=== PATIENT | female | born 1955 | race Hispanic/Latino ===

== ENCOUNTER 2018-06-25 16:17 | Inpatient (IN) | payer OTHER ==
[2018-06-25] MEDS ORDERED: Vancomycin 500 mg Inj IVPB STA (17:02)
[2018-06-25] MEDS ORDERED: Oxycodone/Acetaminophen 5/325 mg Tab PO STA (17:03)
[2018-06-25] MEDS ORDERED: Piperacillin/Tazobact 3.375 gm 100 ML IVPB STA (17:03)
--- NOTE | 2018-06-25 17:32 | ED PDOC ---
Arrival/HPI - General Chief Complaint: Lower Extremity Problem/Injury Time Seen by Provider: 06/25/18 17:01 Historian: Patient - History of Present Illness Narrative History of Present Illness (Text): 06/25/18 17:01 63 year old female, with past medical history of diabetes, referred to the Emergency Department by Dr. Pretty for evaluation of left 5th toe gangrene today. Patient informs 10 days course of antibiotics with no improvement to symptoms. Patient any other associated medical complaints. Patient denies any fever, chills, nausea, vomiting, diarrhea, abdominal pain, chest pain, shortness of breath, cough, headache, dizziness, neck pain, back pain or any other complaints. PMD:Dr. Ma Time/Duration: > week Symptom Onset: Gradual Symptom Course: Unchanged Activities at Onset: Light Context: Other (Referred by Dr. Pretty) Past Medical History - Provider Review Nursing Documentation Reviewed: Yes - Infectious Disease Hx of Infectious Diseases: None - Reproductive Menopause: Yes Family/Social History - Physician Review Nursing Documentation Reviewed: Yes Family/Social History: No Known Family HX Allergies/Home Meds Allergies/Adverse Reactions: Allergies meloxicam [From Mobic] Allergy (Intermediate, Verified 06/25/18 16:20) ANAPHYLAXIS Review of Systems - Physician Review All systems were reviewed & negative as marked: Yes - Review of Systems Constitutional: absent: Fevers Respiratory: absent: SOB, Cough Cardiovascular: absent: Chest Pain, KAUR Gastrointestinal: absent: Abdominal Pain, Diarrhea, Nausea, Vomiting Musculoskeletal: Other (5th toe gangrene). absent: Back Pain, Neck Pain Neurological: absent: Headache, Dizziness Physical Exam - Physical Exam Narrative Physical Exam (Text): 06/25/18 17:01 Gen: VS reviewed, alert, well developed, well nourished, nontoxic, mild distress ENT: normal pharynx Eye: EOMI, PERRL Neck: no JVD, supple, no adenopathy CV: regular rate, regular rhythm, no rubs,no murmur, no gallops, S1, S2, pulses equal and strong Pulm: no distress, clear to auscultation, no wheeze, no rhonchi, breath sounds equal, no rales Abd: soft, nontender, no guarding, no rebound, no rigidity, normal bowel sounds Ext: no edema; dry gangrene to 5th toe noted. Mild surrounding cellulitic skin changes. Skin: good color, no rash, no cyanosis Psych: responds appropriately to questions, normal affect Neuro: oriented x3, CN2-12 intact grossly, motor intact, sensation intact Vital Signs Reviewed: Yes Vital Signs Temp Pulse Resp BP Pulse Ox 06/25/18 16:45 98.3 F 110 H 18 159/70 H 99 Temperature: Afebrile Blood Pressure: Hypertensive Pulse: Tachycardic Respiratory Rate: Normal Appearance: Positive for: Well-Appearing, Non-Toxic, Comfortable Pain Distress: Mild Mental Status: Positive for: Alert and Oriented X 3 Medical Decision Making ED Course and Treatment: 06/25/18 17:01 Impression: 63 year old female presents to the Emergency Department for evaluation of left 5th toe gangrene. Plan: -- Labs -- EKG -- Chest X-ray -- Oxcodone -- Vancomycin -- Zosyn -- Blood Culture -- X-ray of Left foot -- Reassess and disposition Prior Visits: Notes and results from previous visits were reviewed. Progress Notes: 06/25/18 18:[address] ma. patient to be admitted for nonhealing diabetic wound of the 5th toe. failed outpt po abx, patient was sent to be admitted for iv abx, no evidence of sepsis, podiatry consult, likely amputation gangrene of the foot. - RAD Interpretation Radiology Orders: 06/25/18 17:01 CHEST PORTABLE [RAD] Stat 06/25/18 17:26 FOOT LEFT 5TH DIGIT (TOE) [RAD] Stat - EKG Interpretation EKG Interpretation (Text): 06/25/18 18:53 1826: nsr at 91 bpm, nml qrs, no ectopy, no acute sttw abn Interpreted by ED Physician: Yes - Medication Orders Current Medication Orders: Piperacillin Sod/Tazobactam Sod (Zosyn 3.375 In Ns 100ml) 100 mls @ 200 mls/hr IVPB STAT STA; Protocol Stop: 06/25/18 17:32 Vancomycin HCl 1.25 gm/ Sodium (Chloride) 250 mls @ 167 mls/hr IVPB ONCE ONE Stop: 06/25/18 18:44 Discontinued Medications Oxycodone/Acetaminophen (Percocet 5/325 Mg Tab) 1 tab PO STAT STA Stop: 06/25/18 17:04 - Scribe Statement The provider has reviewed the documentation as recorded by the Scribe Scott Dominique. All medical record entries made by the Scribe were at my direction and personally dictated by me. I have reviewed the chart and agree that the record accurately reflects my personal performance of the history, physical exam, medical decision making, and the department course for this patient. I have also personally directed, reviewed, and agree with the discharge instructions and disposition. Disposition/Present on Arrival - Present on Arrival Any Indicators Present on Arrival: No History of DVT/PE: No History of Uncontrolled Diabetes: No Urinary Catheter: No History of Decub. Ulcer: No History Surgical Site Infection Following: None - Disposition Have Diagnosis and Disposition been Completed?: Yes Diagnosis: Gangrene of toe Disposition: HOSPITALIZED Disposition Time: 18:56 Patient Plan: Admission Condition: STABLE Forms: [employer] (Polish)
--- NOTE | 2018-06-25 17:52 | RAD ---
HISTORY: chest pain COMPARISON: None available. TECHNIQUE: Chest, one view. FINDINGS: Examination limited by habitus. LUNGS: Hyperinflation may be seen in setting of COPD. No focal consolidation. Please note that chest x-ray has limited sensitivity for the detection of pulmonary masses. PLEURA: No significant pleural effusion identified. No definite pneumothorax . CARDIOVASCULAR: Heart size appears within normal limits. Atherosclerotic calcification of the aortic knob. OSSEOUS STRUCTURES: Mild degenerative changes. VISUALIZED UPPER ABDOMEN: Unremarkable. OTHER FINDINGS: None. IMPRESSION: Hyperinflation may be seen in setting of COPD.
[2018-06-25 18:24] LABS: VENOUS BLOOD GAS BASE EXCESS -0.8 mmol/L (0.0-2.0); VENOUS BLOOD GAS PO2 43 mm/Hg (30-55); VENOUS BLOOD PH 7.31 (7.32-7.43)
[2018-06-25 18:36] LABS: INR 1.14; PARTIAL THROMBOPLASTIN TIME 32.4 Seconds (25.1-36.5)
[2018-06-25 18:37] LABS: BASO # 0.05 K/mm3 (0.0-2.0); BASO % 0.4 % (0.0-3.0); EOS % 0.3 % (1.5-5.0); GRAN # 8.11 (1.4-6.5); GRAN % 69.9 % (50.0-68.0); HEMOGLOBIN 15.7 g/dL (12.0-16.0); LYMPH # 2.6 (1.2-3.4); LYMPH % 22.7 % (22.0-35.0); MEAN CELL VOLUME 87.4 fl (80.0-105.0); MEAN CORPUSCULAR HEMOGLOBIN 30.4 pg (25.0-35.0); MEAN CORPUSCULAR HGB CONC 34.8 g/dl (31.0-37.0); MEAN PLATELET VOLUME 9.3 fl (7.0-11.0); MONO # 0.8 (0.1-0.6); MONO % 6.7 % (1.0-6.0); RBC 5.16 10^6/uL (3.5-6.1); RED CELL DISTRIBUTION WIDTH 13.4 % (11.5-14.5); WHITE BLOOD COUNT 11.6 10^3/ul (4.5-11.0)
[2018-06-25 18:41] LABS: ALB/GLOB RATIO 1.2 (1.1-1.8); ALBUMIN 4.2 g/dL (3.0-4.8); ALT/SGPT 29 U/L (7-56); AST/SGOT 23 U/L (14-36); BLOOD UREA NITROGEN 25 mg/dL (7-21); CALCIUM 9.5 mg/dL (8.4-10.5); GFR NON-AFRICAN AMERICAN > 60
[2018-06-25] MEDS ORDERED: Sodium Chloride 0.45% 1,000 ML IV SCH (23:00)
[2018-06-26 00:51] VITALS: BMI 27.9
[2018-06-26] MEDS: Oxycodone/Acetaminophen 5/325 mg Tab PO PRN ×2 (06:12→18:23)
[2018-06-26 06:41] LABS: BASO # 0.04 K/mm3 (0.0-2.0); BASO % 0.4 % (0.0-3.0); EOS # 0.1 (0.0-0.7); EOS % 1.2 % (1.5-5.0); GRAN # 5.77 (1.4-6.5); GRAN % 57.9 % (50.0-68.0); HEMOGLOBIN 15.7 g/dL (12.0-16.0); LYMPH # 3.3 (1.2-3.4); LYMPH % 32.9 % (22.0-35.0); MEAN CELL VOLUME 87.1 fl (80.0-105.0); MEAN CORPUSCULAR HEMOGLOBIN 30.2 pg (25.0-35.0); MEAN CORPUSCULAR HGB CONC 34.7 g/dl (31.0-37.0); MEAN PLATELET VOLUME 9.4 fl (7.0-11.0); MONO # 0.8 (0.1-0.6); MONO % 7.6 % (1.0-6.0); RBC 5.2 10^6/uL (3.5-6.1); RED CELL DISTRIBUTION WIDTH 13.4 % (11.5-14.5)
[2018-06-26 07:13] LABS: BLOOD UREA NITROGEN 18 mg/dL (7-21); CALCIUM 9.4 mg/dL (8.4-10.5); GFR NON-AFRICAN AMERICAN > 60
[2018-06-26] MEDS ORDERED: Vancomycin 1gm in NS 250ml 1 GM/250 ML BAG IVPB SCH (07:15)
--- NOTE | 2018-06-26 09:08 | HP ---
CHIEF COMPLAINT: Pain, infected left fifth toe. HISTORY OF PRESENT ILLNESS: This is a 63-year-old woman, I have never met, but has been a patient of my partner at the office for over 20 years. She presented to the office complaining of redness and erythema of the small toe on the left foot. She was treated with antibiotics. Vascular studies were done, which the patient reports were unremarkable at the local outpatient facility. She [facility] as the toe was worsening and she has failed 7 days of oral Levaquin and was recommended to come to the emergency room for admission. PAST MEDICAL HISTORY: Significant for diabetes times 20 years. Negative for hypertension, tuberculosis, asthma, seizures, coronary artery disease, AL, CAD, CVA, TIA, or cancers of any type. This is her first hospitalization to [facility]. She is s/p tonsillectomy and out patient cryosurgery for cervical CA. MEDICATIONS: Include glyburide 10 mg b.i.d., metformin 1000 mg b.i.d., aspirin 325 once a day, tramadol p.r.n. pain, and recently prescribed levofloxacin that she is taking for over 7 days with little relief. ALLERGIES: SHE REPORTS AN ALLERGY TO MELOXICAM THAT IS RECORDED IN THE MEDICAL RECORD ANAPHYLACTIC TYPE REACTION. SOCIAL HISTORY: Up until 2 days ago, the patient states that she smokes a bit less than one pack cigarettes per day. REVIEW OF SYSTEMS: Otherwise, unremarkable. PHYSICAL EXAMINATION: GENERAL: Mildly overweight 63-year-old woman, resting comfortably in a stretcher in the emergency room with some degree of pain from left fifth toe. HEENT: Head and neck unremarkable. Conjunctivae are pink. Mucous membranes are moist. NECK: Supple without masses. Thyroid was not palpable. HEART: Regular, not tachycardiac. LUNGS: Showed expiratory wheezing in all lung thao anteriorly and posteriorly with prolonged expiratory phase of COPD. ABDOMEN: Soft and nontender. EXTREMITIES: There is no edema on the right foot. Good dorsalis pedis and posterior tibial pulses are present on the right. In the left foot shows +1 edema of the foot up to the ankle. I could not feel a dorsalis pedis or posterior tibial pulse. There is erythema of the fifth toe and small area of dark dry eschar forming on medial aspect of the little toe. LABORATORY DATA: Reviewed and showed white count of 11.6, good H and H at 15 and 45. Coags were unremarkable as were her chemistries except for being slightly dry with a BUN of 25, creatinine of 0.7, and nonfasting glucose of 245. Chest x-ray and foot x-rays were done. Reports are pending. EKG was done, which was sinus rhythm; otherwise, unremarkable. Chest x-ray reports mild hyperinflation of the lungs, suspicious of COPD. IMPRESSION: 1. Peripheral artery disease especially of the left leg. 2. Cellulitis and dry gangrene of the fifth toe of the left foot. 3. Diabetes. 4. Chronic obstructive pulmonary disease with active lesion. 5. Tobacco use disorder. PLAN: The patient will be admitted to medical floor, IV antibiotics, aerosol treatments. Interventional Radiology consultation requested as well as General Surgery and Podiatry for possible amputation of the left fifth toe if revascularization is not a viable first option. Raoul Patrick MD [email or web address]
--- NOTE | 2018-06-26 10:02 | CARD ---
APPROVED REPORT Date of service: 06/25/2018 EKG Measurement Heart [id number] <Conclusion> Normal sinus rhythm Possible Left atrial enlargement Rightward axis
[2018-06-26] MEDS: Insulin Reg-MEDIUM-Coverage SC SCH ×4 (10:30→21:55)
[2018-06-26] MEDS: Albuterol-Ipratrop 3 mg / 0.5 (3 ml) UD IH SCH (11:16)
--- NOTE | 2018-06-26 11:31 | US ---
PROCEDURE: Lower extremity BOSSMAN exam HISTORY: Peripheral vascular disease with gangrene left 5th toe. Smoker. Diabetes. PHYSICIAN(S): Jimbo Yanez MD. FINDINGS: The right resting BOSSMAN is normal, 1.06. The left resting ABIs severely abnormal, 0.53 The brachial systolic pressures are symmetric. The high thigh pressures and waveforms are relatively normal. There is a 55 mm gradient across the left knee. The left calf ankle and metatarsal waveforms are severely blunted. Findings are consistent with distal left SFA, popliteal, and/or trifurcation disease. The pressures and waveforms on the right are normal at all levels. IMPRESSION: 1. Severely abnormal left BOSSMAN at rest. 2. Distal left SFA, popliteal, and/or tibial disease. 3. An MRA with gadolinium runoff has been ordered.
--- NOTE | 2018-06-26 12:44 | RAD ---
Date of service: 06/25/2018 PROCEDURE: Left Foot Radiographs. HISTORY: pain, ?osteo COMPARISON: None. FINDINGS: BONES: Normal. No fracture. JOINTS: Normal. SOFT TISSUES: Normal. OTHER FINDINGS: None. IMPRESSION: Normal left foot radiographs.
--- NOTE | 2018-06-26 16:07 | CP.PCM.CON ---
<Lesly Cho - Last Filed: 06/26/18 16:01> History of Present Illness - History of Present Illness History of Present Illness: Podiatry Consult Note for Dr. Pretty: 63 yo female patient, with PMHx of DM, seen and evaluated for L 5th digit gangrene. Patient is AAO x3 and in NAD. Patient states that Dr. Pretty sent her into the ED for further evaluation. Her left 5th digit has become more black and painful over the past two weeks; she states that she would like to do as much as she can to help save her toe at this point. She denies any other pedal complaints at this time. Denies N/V/F/SOB. Review of Systems - Review of Systems Review of Systems: As per HPI Past Patient History - Infectious Disease Hx of Infectious Diseases: None - Past Social History Smoking Status: Current Some Days Smoker - CARDIAC Hx Cardiac Disorders: No - PULMONARY Other/Comment: SMOKES 1PPD - NEUROLOGICAL Hx Neurological Disorder: No - HEENT Hx HEENT Problems: No - RENAL Hx Chronic Kidney Disease: No - ENDOCRINE/METABOLIC Hx Diabetes Mellitus Type 1: Yes - HEMATOLOGICAL/ONCOLOGICAL Hx Blood Disorders: No - MUSCULOSKELETAL/RHEUMATOLOGICAL Hx Falls: No - GASTROINTESTINAL Hx Gastrointestinal Disorders: No - GENITOURINARY/GYNECOLOGICAL Hx Genitourinary Disorders: No - PSYCHIATRIC Hx Substance Use: No - SURGICAL HISTORY Hx Surgeries: Yes Hx Cholecystectomy: Yes - ANESTHESIA Hx Anesthesia: Yes Meds Allergies/Adverse Reactions: Allergies Allergy/AdvReac Type Severity Reaction Status Date / Time meloxicam [From Mob] Allergy Intermediate ANAPHYLAXIS Verified 06/25/18 16:20 - Medications Medications: Current Medications Acetaminophen (Tylenol 325mg Tab) 650 mg PO Q6H PRN PRN Reason: Fever >100.4 F Albuterol/Ipratropium (Duoneb 3 Mg/0.5 Mg (3 Ml) Ud) 3 ml IH BID [facility] Last Admin: 06/26/18 11:16 Dose: 3 ml Aspirin (Ecotrin) 81 mg PO DAILY [facility] Last Admin: 06/26/18 10:30 Dose: 81 mg Glipizide (Glucotrol) 5 mg PO ACB [facility] Last Admin: 06/26/18 10:29 Dose: 5 mg Sodium Chloride (Sodium Chloride 0.45%) 1,000 mls @ 100 mls/hr IV .Q10H [facility] Last Admin: 06/26/18 06:13 Dose: 100 mls/hr Vancomycin HCl (Vancomycin 1gm) 1 gm in 250 mls @ 167 mls/hr IVPB Q12H [facility]; Protocol Last Admin: 06/26/18 10:30 Dose: 167 mls/hr Insulin Human Regular (Humulin R Med) 0 units SC ACHS [facility]; Protocol Last Admin: 06/26/18 10:30 Dose: Not Given Metformin HCl (Glucophage) 1,000 mg PO BID [facility] Last Admin: 06/26/18 10:30 Dose: 1,000 mg Nicotine (Nicoderm Cq) 1 patch TD DAILY [facility] Last Admin: 06/26/18 10:30 Dose: 1 patch Oxycodone/Acetaminophen (Percocet 5/325 Mg Tab) 1 tab PO Q4H PRN PRN Reason: Pain, moderate (4-7) Stop: 06/28/18 22:54 Last Admin: 06/26/18 06:12 Dose: 1 tab Physical Exam - Constitutional Appears: Non-toxic, No Acute Distress - Head Exam Head Exam: ATRAUMATIC, NORMOCEPHALIC - Extremities Exam Additional comments: L lower extremity focused exam: Vasc: DP/PT faintly palpable, CFT < 3 seconds to digits 1-4, mild edema noted to L 5th digit Ortho: Pain upon palpation to left 5th digit. MMT 5/5 Neuro: Gross sensation intact, unable to assess protective sensation Derm: Dry gangrene noted to medial aspect of 5th digit. No open lesions, no purulence, no drainage noted. Erythema noted to dorsal-lateral aspect of 5th digit. - Neurological Exam Neurological exam: Alert, Oriented x3 - Psychiatric Exam Psychiatric exam: Normal Affect, Normal Mood Results - Vital Signs Recent Vital Signs: Last Vital Signs Temp 97.3 F L 06/26/18 08:10 Pulse 75 06/26/18 11:15 Resp 20 06/26/18 08:10 BP 160/90 H 06/26/18 08:10 Pulse Ox 97 06/26/18 08:10 - Labs Result Diagrams: 06/26/18 06:00 06/26/18 06:00 Labs: Laboratory Results - last 24 hr 06/25/18 06/25/18 06/25/18 18:17 18:21 18:21 WBC 11.6 H RBC 5.16 Hgb 15.7 Hct 45.1 MCV 87.4 MCH 30.4 MCHC 34.8 RDW 13.4 Plt Count 320 MPV 9.3 Gran % 69.9 H Lymph % (Auto) 22.7 [place] % (Auto) 6.7 H Eos % (Auto) 0.3 L Baso % (Auto) 0.4 Gran # 8.11 H Lymph # (Auto) 2.6 [place] # (Auto) 0.8 H Eos # (Auto) 0.0 Baso # (Auto) 0.05 PT 13.0 H INR 1.14 APTT 32.4 pO2 43 VBG pH 7.31 L VBG pCO2 52.0 VBG HCO3 26.2 VBG Total CO2 27.8 VBG O2 Sat (Calc) 80.9 H VBG Base Excess -0.8 L VBG Potassium 4.3 Sodium 133.0 Chloride 102.0 Glucose 250 H Lactate 1.8 FiO2 21.0 Potassium Carbon Dioxide Anion Gap BUN Creatinine Est GFR ( Amer) Est GFR (Non-Af Amer) POC Glucose (mg/dL) Random Glucose Calcium Total Bilirubin AST ALT Alkaline Phosphatase Total Protein Albumin Globulin Albumin/Globulin Ratio Venous Blood Potassium 4.3 Blood Type Blood Type Confirm Antibody Screen BBK History Checked 06/25/18 06/25/18 06/25/18 18:21 19:13 20:18 WBC RBC Hgb Hct MCV MCH MCHC RDW Plt Count MPV Gran % Lymph % (Auto) [place] % (Auto) Eos % (Auto) Baso % (Auto) Gran # Lymph # (Auto) [place] # (Auto) Eos # (Auto) Baso # (Auto) PT INR APTT pO2 VBG pH VBG pCO2 VBG HCO3 VBG Total CO2 VBG O2 Sat (Calc) VBG Base Excess VBG Potassium Sodium 136 Chloride 101 Glucose Lactate FiO2 Potassium 4.2 Carbon Dioxide 23 Anion Gap 16 BUN 25 H Creatinine 0.7 Est GFR ( Amer) > 60 Est GFR (Non-Af Amer) > 60 POC Glucose (mg/dL) Random Glucose 245 H Calcium 9.5 Total Bilirubin 0.5 AST 23 ALT 29 Alkaline Phosphatase 119 Total Protein 7.8 Albumin 4.2 Globulin 3.6 Albumin/Globulin Ratio 1.2 Venous Blood Potassium Blood Type O POSITIVE Blood Type Confirm O POSITIVE Antibody Screen Negative BBK History Checked No verified bt 06/26/18 06/26/18 06/26/18 06:00 06:00 08:24 WBC 10.0 RBC 5.20 Hgb 15.7 Hct 45.3 MCV 87.1 MCH 30.2 MCHC 34.7 RDW 13.4 Plt Count 325 MPV 9.4 Gran % 57.9 Lymph % (Auto) 32.9 [place] % (Auto) 7.6 H Eos % (Auto) 1.2 L Baso % (Auto) 0.4 Gran # 5.77 Lymph # (Auto) 3.3 [place] # (Auto) 0.8 H Eos # (Auto) 0.1 Baso # (Auto) 0.04 PT INR APTT pO2 VBG pH VBG pCO2 VBG HCO3 VBG Total CO2 VBG O2 Sat (Calc) VBG Base Excess VBG Potassium Sodium 138 Chloride 104 Glucose Lactate FiO2 Potassium 4.3 Carbon Dioxide 26 Anion Gap 12 BUN 18 Creatinine 0.6 L Est GFR ( Amer) > 60 Est GFR (Non-Af Amer) > 60 POC Glucose (mg/dL) 171 H Random Glucose 153 H Calcium 9.4 Total Bilirubin AST ALT Alkaline Phosphatase Total Protein Albumin Globulin Albumin/Globulin Ratio Venous Blood Potassium Blood Type Blood Type Confirm Antibody Screen BBK History Checked 06/26/18 11:15 WBC RBC Hgb Hct MCV MCH MCHC RDW Plt Count MPV Gran % Lymph % (Auto) [place] % (Auto) Eos % (Auto) Baso % (Auto) Gran # Lymph # (Auto) [place] # (Auto) Eos # (Auto) Baso # (Auto) PT INR APTT pO2 VBG pH VBG pCO2 VBG HCO3 VBG Total CO2 VBG O2 Sat (Calc) VBG Base Excess VBG Potassium Sodium Chloride Glucose Lactate FiO2 Potassium Carbon Dioxide Anion Gap BUN Creatinine Est GFR ( Amer) Est GFR (Non-Af Amer) POC Glucose (mg/dL) 166 H Random Glucose Calcium Total Bilirubin AST ALT Alkaline Phosphatase Total Protein Albumin Globulin Albumin/Globulin Ratio Venous Blood Potassium Blood Type Blood Type Confirm Antibody Screen BBK History Checked Assessment & Plan - Assessment and Plan (Free Text) Assessment: 63 yo female patient, with PMHx of DM, seen and evaluated for L 5th digit gangrene. Plan: Patient seen and evaluated bedside with Dr. Jacobsen Absent leukocytosis Local wound care: betadine paint, DSD to L 5th digit L foot X-ray (06/25); Normal L foot radiographs L MRI ordered (06/26); pending Lower arterial non-invasive studies (06/25); R BOSSMAN 1.06, L .53 Vasc reccs appreciated Podiatry will continue to follow Thank you for the consult - Date & Time Date: 06/26/18 Time: 16:07 <Filipe Jacobsen - Last Filed: 06/26/18 17:08> Meds - Medications Medications: Current Medications Acetaminophen (Tylenol 325mg Tab) 650 mg PO Q6H PRN PRN Reason: Fever >100.4 F Albuterol/Ipratropium (Duoneb 3 Mg/0.5 Mg (3 Ml) Ud) 3 ml IH BID [facility] Last Admin: 06/26/18 11:16 Dose: 3 ml Aspirin (Ecotrin) 81 mg PO DAILY [facility] Last Admin: 06/26/18 10:30 Dose: 81 mg Glipizide (Glucotrol) 5 mg PO ACB [facility] Last Admin: 06/26/18 10:29 Dose: 5 mg Sodium Chloride (Sodium Chloride 0.45%) 1,000 mls @ 100 mls/hr IV .Q10H [facility] Last Admin: 06/26/18 06:13 Dose: 100 mls/hr Vancomycin HCl (Vancomycin 1gm) 1 gm in 250 mls @ 167 mls/hr IVPB Q12H [facility]; Protocol Last Admin: 06/26/18 10:30 Dose: 167 mls/hr Insulin Human Regular (Humulin R Med) 0 units SC ACHS [facility]; Protocol Last Admin: 06/26/18 10:30 Dose: Not Given Metformin HCl (Glucophage) 1,000 mg PO BID [facility] Last Admin: 06/26/18 10:30 Dose: 1,000 mg Nicotine (Nicoderm Cq) 1 patch TD DAILY [facility] Last Admin: 06/26/18 10:30 Dose: 1 patch Oxycodone/Acetaminophen (Percocet 5/325 Mg Tab) 1 tab PO Q4H PRN PRN Reason: Pain, moderate (4-7) Stop: 06/28/18 22:54 Last Admin: 06/26/18 06:12 Dose: 1 tab Results - Vital Signs Recent Vital Signs: Last Vital Signs Temp 97.3 F L 06/26/18 08:10 Pulse 75 10/12/18 11:15 Resp 20 06/26/18 08:10 BP 160/90 H 06/26/18 08:10 Pulse Ox 97 06/26/18 08:10 - Labs Result Diagrams: 06/26/18 06:00 06/26/18 06:00 Labs: Laboratory Results - last 24 hr 06/25/18 06/25/18 06/25/18 18:17 18:21 18:21 WBC 11.6 H RBC 5.16 Hgb 15.7 Hct 45.1 MCV 87.4 MCH 30.4 MCHC 34.8 RDW 13.4 Plt Count 320 MPV 9.3 Gran % 69.9 H Lymph % (Auto) 22.7 [place] % (Auto) 6.7 H Eos % (Auto) 0.3 L Baso % (Auto) 0.4 Gran # 8.11 H Lymph # (Auto) 2.6 [place] # (Auto) 0.8 H Eos # (Auto) 0.0 Baso # (Auto) 0.05 PT 13.0 H INR 1.14 APTT 32.4 pO2 43 VBG pH 7.31 L VBG pCO2 52.0 VBG HCO3 26.2 VBG Total CO2 27.8 VBG O2 Sat (Calc) 80.9 H VBG Base Excess -0.8 L VBG Potassium 4.3 Sodium 133.0 Chloride 102.0 Glucose 250 H Lactate 1.8 FiO2 21.0 Potassium Carbon Dioxide Anion Gap BUN Creatinine Est GFR ( Amer) Est GFR (Non-Af Amer) POC Glucose (mg/dL) Random Glucose Calcium Total Bilirubin AST ALT Alkaline Phosphatase Total Protein Albumin Globulin Albumin/Globulin Ratio Venous Blood Potassium 4.3 Blood Type Blood Type Confirm Antibody Screen BBK History Checked 06/25/18 06/25/18 06/25/18 18:21 19:13 20:18 WBC RBC Hgb Hct MCV MCH MCHC RDW Plt Count MPV Gran % Lymph % (Auto) [place] % (Auto) Eos % (Auto) Baso % (Auto) Gran # Lymph # (Auto) [place] # (Auto) Eos # (Auto) Baso # (Auto) PT INR APTT pO2 VBG pH VBG pCO2 VBG HCO3 VBG Total CO2 VBG O2 Sat (Calc) VBG Base Excess VBG Potassium Sodium 136 Chloride 101 Glucose Lactate FiO2 Potassium 4.2 Carbon Dioxide 23 Anion Gap 16 BUN 25 H Creatinine 0.7 Est GFR ( Amer) > 60 Est GFR (Non-Af Amer) > 60 POC Glucose (mg/dL) Random Glucose 245 H Calcium 9.5 Total Bilirubin 0.5 AST 23 ALT 29 Alkaline Phosphatase 119 Total Protein 7.8 Albumin 4.2 Globulin 3.6 Albumin/Globulin Ratio 1.2 Venous Blood Potassium Blood Type O POSITIVE Blood Type Confirm O POSITIVE Antibody Screen Negative BBK History Checked No verified bt 06/26/18 06/26/18 06/26/18 06:00 06:00 08:24 WBC 10.0 RBC 5.20 Hgb 15.7 Hct 45.3 MCV 87.1 MCH 30.2 MCHC 34.7 RDW 13.4 Plt Count 325 MPV 9.4 Gran % 57.9 Lymph % (Auto) 32.9 [place] % (Auto) 7.6 H Eos % (Auto) 1.2 L Baso % (Auto) 0.4 Gran # 5.77 Lymph # (Auto) 3.3 [place] # (Auto) 0.8 H Eos # (Auto) 0.1 Baso # (Auto) 0.04 PT INR APTT pO2 VBG pH VBG pCO2 VBG HCO3 VBG Total CO2 VBG O2 Sat (Calc) VBG Base Excess VBG Potassium Sodium 138 Chloride 104 Glucose Lactate FiO2 Potassium 4.3 Carbon Dioxide 26 Anion Gap 12 BUN 18 Creatinine 0.6 L Est GFR ( Amer) > 60 Est GFR (Non-Af Amer) > 60 POC Glucose (mg/dL) 171 H Random Glucose 153 H Calcium 9.4 Total Bilirubin AST ALT Alkaline Phosphatase Total Protein Albumin Globulin Albumin/Globulin Ratio Venous Blood Potassium Blood Type Blood Type Confirm Antibody Screen BBK History Checked 06/26/18 06/26/18 11:15 16:07 WBC RBC Hgb Hct MCV MCH MCHC RDW Plt Count MPV Gran % Lymph % (Auto) [place] % (Auto) Eos % (Auto) Baso % (Auto) Gran # Lymph # (Auto) [place] # (Auto) Eos # (Auto) Baso # (Auto) PT INR APTT pO2 VBG pH VBG pCO2 VBG HCO3 VBG Total CO2 VBG O2 Sat (Calc) VBG Base Excess VBG Potassium Sodium Chloride Glucose Lactate FiO2 Potassium Carbon Dioxide Anion Gap BUN Creatinine Est GFR ( Amer) Est GFR (Non-Af Amer) POC Glucose (mg/dL) 166 H 202 H Random Glucose Calcium Total Bilirubin AST ALT Alkaline Phosphatase Total Protein Albumin Globulin Albumin/Globulin Ratio Venous Blood Potassium Blood Type Blood Type Confirm Antibody Screen BBK History Checked Attending/Attestation - Attestation I have personally seen and examined this patient.: Yes I have fully participated in the care of the patient.: Yes I have reviewed all pertinent clinical information: Yes
--- NOTE | 2018-06-26 16:40 | CARD ---
APPROVED REPORT Date of service: 06/26/2018 EXAM: Two-dimensional and M-mode echocardiogram with Doppler and color Doppler. INDICATION PAD/ EMBOLIC SOURCE 2D DIMENSIONS Left Atrium (2D)4.0 (1.6-4.0cm)IVSd1.6 (0.7-1.1cm) LVDd3.7 (3.9-5.9cm)PWd1.6 (0.7-1.1cm) LVDs2.4 (2.5-4.0cm)FS (%) 34.7 % LVEF (%)64.7 (>50%) M-Mode DIMENSIONS Aortic Root2.70 (2.2-3.7cm)Aortic Cusp Exc.0.90 (1.5-2.0cm) Aortic Valve AoV Peak Nhvjheda916.0cm/Katherine Peak GR.14mmHg Mitral Valve MV E Sfapqojv01.9cm/sMV A Nbdkdyph895.0cm/sE/A ratio0.6 TDI E/Lateral E'0.0E/Medial E'0.0 Tricuspid Valve TR Peak Bxkrnwbw763wq/sRAP ADGMPORP12ybCmEQ Peak Gr.10mmHg [id number] LEFT VENTRICLE The left ventricle is normal size. There is moderate to severe concentric left ventricular hypertrophy. The left ventricular function is normal. The left ventricular ejection fraction is within the normal range.Ej.Fr: 65%. Tissue Doppler imaging reveals moderate left ventricular diastolic dysfunction. RIGHT VENTRICLE The right ventricle is normal size. There is normal right ventricular wall thickness. ATRIA Lt.Atrial Size Upper Limit of Normal. The right atrium size is normal. AORTIC VALVE Aortic Valve Calcified and shows Very Mild Aortic Stenosis. MITRAL VALVE The mitral valve is normal in structure. Mitral regurgitation is trace. TRICUSPID VALVE The tricuspid valve is normal in structure. There is mild tricuspid regurgitation. PERICARDIAL EFFUSION There is no pericardial effusion. <Conclusion> The left ventricle is normal size. There is moderate to severe concentric left ventricular hypertrophy. The left ventricular function is normal. The left ventricular ejection fraction is within the normal range.Ej.Fr: 65%. Tissue Doppler imaging reveals moderate left ventricular diastolic dysfunction. The right ventricle is normal size. There is normal right ventricular wall thickness. Lt.Atrial Size Upper Limit of Normal. The right atrium size is normal. Aortic Valve Calcified and shows Very Mild Aortic Stenosis. The mitral valve is normal in structure. Mitral regurgitation is trace. The tricuspid valve is normal in structure. There is mild tricuspid regurgitation. There is no pericardial effusion.
--- NOTE | 2018-06-26 18:26 | CON ---
DATE: 06/26/2018 CHIEF COMPLAINT/HISTORY OF PRESENT ILLNESS: This is a 63-year-old diabetic smoker, who was admitted last night with gangrene of the left fifth toe. She states that the change of the toe began about 2 weeks ago. She is having significant pain. No systemic fevers, sweats or chills. She did try outpatient antibiotics. Her past medical history is significant for diabetes. She is actively smoking. Her BOSSMAN/PVR exam demonstrates a normal right lower extremity exam. Her left lower extremity BOSSMAN is severely abnormal, 0.53. She has a 50 mm gradient across the left knee. The left calf, ankle and metatarsal waveforms are severely blunted. Findings are consistent with distal left SFA, popliteal, and/or trifurcation disease. I have ordered an MRA runoff. That will be reviewed. If endovascular revascularization can be performed, an arteriogram will be scheduled for early next week. The case was discussed at length with Dr. Raoul Patrick. Jimbo Yanez MD [email or web address]
--- NOTE | 2018-06-26 21:59 | CP.PCM.CON ---
History of Present Illness - History of Present Illness History of Present Illness: 63 year old female with PMH of DM came in to [facility] after she was sent in by Dr. Pretty from the wound center. She has been on antibiotics for the past 10 days for left 5th toe gangrene. She did not improve with antibiotics. She has been having on and off pain in the left leg. She denies animal contacts, no soaking of her feet in water, no fever or chills, no headache or dizziness, no chest pain, no SOB, no abdominal pain, no cough or colds, no diarrhea, no dysuria. Infectious Diseases consult is requested to further evaluate and manage. Review of Systems - Review of Systems All systems: reviewed and no additional remarkable complaints except (as per HPI) Past Patient History - Infectious Disease Hx of Infectious Diseases: None - Past Social History Smoking Status: Current Some Days Smoker - CARDIAC Hx Cardiac Disorders: No - PULMONARY Other/Comment: SMOKES 1PPD - NEUROLOGICAL Hx Neurological Disorder: No - HEENT Hx HEENT Problems: No - RENAL Hx Chronic Kidney Disease: No - ENDOCRINE/METABOLIC Hx Diabetes Mellitus Type 1: Yes - HEMATOLOGICAL/ONCOLOGICAL Hx Blood Disorders: No - MUSCULOSKELETAL/RHEUMATOLOGICAL Hx Falls: No - GASTROINTESTINAL Hx Gastrointestinal Disorders: No - GENITOURINARY/GYNECOLOGICAL Hx Genitourinary Disorders: No - PSYCHIATRIC Hx Substance Use: No - SURGICAL HISTORY Hx Surgeries: Yes Hx Cholecystectomy: Yes - ANESTHESIA Hx Anesthesia: Yes Meds Allergies/Adverse Reactions: Allergies Allergy/AdvReac Type Severity Reaction Status Date / Time meloxicam [From [facility]] Allergy Intermediate ANAPHYLAXIS Verified 06/25/18 16:20 - Medications Medications: Current Medications Acetaminophen (Tylenol 325mg Tab) 650 mg PO Q6H PRN PRN Reason: Fever >100.4 F Aspirin (Ecotrin) 81 mg PO DAILY [facility] Glipizide (Glucotrol) 5 mg PO ACB [facility] Sodium Chloride (Sodium Chloride 0.45%) 1,000 mls @ 100 mls/hr IV .Q10H [facility] Last Admin: 06/26/18 06:13 Dose: 100 mls/hr Vancomycin HCl (Vancomycin 1gm) 1 gm in 250 mls @ 167 mls/hr IVPB Q12H [facility]; Protocol Insulin Human Regular (Humulin R Med) 0 units SC ACHS [facility]; Protocol Metformin HCl (Glucophage) 1,000 mg PO BID [facility] Oxycodone/Acetaminophen (Percocet 5/325 Mg Tab) 1 tab PO Q4H PRN PRN Reason: Pain, moderate (4-7) Stop: 06/28/18 22:54 Last Admin: 06/26/18 06:12 Dose: 1 tab Physical Exam - Constitutional Appears: Non-toxic, No Acute Distress, Chronically Ill - Head Exam Head Exam: NORMAL INSPECTION - ENT Exam ENT Exam: Mucous Membranes Moist - Neck Exam Neck exam: Negative for: Meningismus - Respiratory Exam Respiratory Exam: absent: Rales - Cardiovascular Exam Cardiovascular Exam: +S1, +S2 - GI/Abdominal Exam GI & Abdominal Exam: Soft. absent: Tenderness - Extremities Exam Additional comments: right foot with dressings in place Results - Vital Signs Recent Vital Signs: Last Vital Signs Temp 98 F 06/25/18 20:00 Pulse 87 06/25/18 20:00 Resp 20 06/26/18 00:39 BP 137/82 06/25/18 20:00 Pulse Ox 99 06/25/18 20:00 - Labs Result Diagrams: 06/26/18 06:00 06/26/18 06:00 Labs: Laboratory Results - last 24 hr 06/25/18 06/25/18 06/25/18 18:17 18:21 18:21 WBC 11.6 H RBC 5.16 Hgb 15.7 Hct 45.1 MCV 87.4 MCH 30.4 MCHC 34.8 RDW 13.4 Plt Count 320 MPV 9.3 Gran % 69.9 H Lymph % (Auto) 22.7 [place] % (Auto) 6.7 H Eos % (Auto) 0.3 L Baso % (Auto) 0.4 Gran # 8.11 H Lymph # (Auto) 2.6 [place] # (Auto) 0.8 H Eos # (Auto) 0.0 Baso # (Auto) 0.05 PT 13.0 H INR 1.14 APTT 32.4 pO2 43 VBG pH 7.31 L VBG pCO2 52.0 VBG HCO3 26.2 VBG Total CO2 27.8 VBG O2 Sat (Calc) 80.9 H VBG Base Excess -0.8 L VBG Potassium 4.3 Sodium 133.0 Chloride 102.0 Glucose 250 H Lactate 1.8 FiO2 21.0 Potassium Carbon Dioxide Anion Gap BUN Creatinine Est GFR ( Amer) Est GFR (Non-Af Amer) Random Glucose Calcium Total Bilirubin AST ALT Alkaline Phosphatase Total Protein Albumin Globulin Albumin/Globulin Ratio Venous Blood Potassium 4.3 Blood Type Blood Type Confirm Antibody Screen BBK History Checked 06/25/18 06/25/18 06/25/18 18:21 19:13 20:18 WBC RBC Hgb Hct MCV MCH MCHC RDW Plt Count MPV Gran % Lymph % (Auto) [place] % (Auto) Eos % (Auto) Baso % (Auto) Gran # Lymph # (Auto) [place] # (Auto) Eos # (Auto) Baso # (Auto) PT INR APTT pO2 VBG pH VBG pCO2 VBG HCO3 VBG Total CO2 VBG O2 Sat (Calc) VBG Base Excess VBG Potassium Sodium 136 Chloride 101 Glucose Lactate FiO2 Potassium 4.2 Carbon Dioxide 23 Anion Gap 16 BUN 25 H Creatinine 0.7 Est GFR ( Amer) > 60 Est GFR (Non-Af Amer) > 60 Random Glucose 245 H Calcium 9.5 Total Bilirubin 0.5 AST 23 ALT 29 Alkaline Phosphatase 119 Total Protein 7.8 Albumin 4.2 Globulin 3.6 Albumin/Globulin Ratio 1.2 Venous Blood Potassium Blood Type O POSITIVE Blood Type Confirm O POSITIVE Antibody Screen Negative BBK History Checked No verified bt Assessment & Plan - Assessment and Plan (Free Text) Plan: Assessment Left 5th toe dry gangrene in this patient with severe peripheral arterial disease as seen on duplex ultrasound DM Plan has been given Vancomycin and Zosyn but will discontinue since blood supply is very poor to the left leg, there is no fever or leukocytosis; follow up plan for re-vascularization prior to plans for the left 5th toe will monitor off antibiotics follow up MRI of the left foot and MRA of the left leg
[2018-06-27] MEDS: Insulin Reg-MEDIUM-Coverage SC SCH ×4 (08:34→22:32)
--- NOTE | 2018-06-27 09:15 | CP.PCM.PN ---
<Maryann Bloom - Last Filed: 06/27/18 09:13> Subjective - Date & Time of Evaluation Date of Evaluation: 06/27/18 Time of Evaluation: 09:13 - Subjective Subjective: Podiatry progress Note for Dr. Pretty: 63 yo female patient, with PMHx of DM, seen and evaluated for L 5th digit gangrene. Patient is AAO x3 and in NAD. Patient states that Dr. Pretty sent her into the ED for further evaluation. Her left 5th digit has become more black and painful over the past two weeks; she states that she would like to do as much as she can to help save her toe at this point. Still denies surgical intervention. Patient denies acute overnight events She denies any other pedal complaints at this time. Denies N/V/F/SOB. Objective - Vital Signs/Intake and Output Vital Signs (last 24 hours): Temp Pulse Resp BP Pulse Ox 98.0 F 92 H 19 175/98 H 95 06/27/18 06:00 06/27/18 06:00 06/27/18 06:00 06/27/18 06:00 06/27/18 06:00 Intake and Output: 06/27/18 06/27/18 06:59 18:59 Intake Total 2410 Output Total 5 Balance 2405 - Medications Medications: Current Medications Acetaminophen (Tylenol 325mg Tab) 650 mg PO Q6H PRN PRN Reason: Fever >100.4 F Albuterol/Ipratropium (Duoneb 3 Mg/0.5 Mg (3 Ml) Ud) 3 ml IH BID [facility] Last Admin: 06/26/18 11:16 Dose: 3 ml Aspirin (Ecotrin) 81 mg PO DAILY [facility] Last Admin: 06/26/18 10:30 Dose: 81 mg Glipizide (Glucotrol) 5 mg PO ACB [facility] Last Admin: 06/27/18 08:35 Dose: 5 mg Sodium Chloride (Sodium Chloride 0.45%) 1,000 mls @ 100 mls/hr IV .Q10H [facility] Last Admin: 06/26/18 06:13 Dose: 100 mls/hr Insulin Human Regular (Humulin R Med) 0 units SC ACHS [facility]; Protocol Last Admin: 06/27/18 08:34 Dose: Not Given Metformin HCl (Glucophage) 1,000 mg PO BID [facility] Last Admin: 06/26/18 18:23 Dose: 1,000 mg Nicotine (Nicoderm Cq) 1 patch TD DAILY [facility] Last Admin: 06/26/18 10:30 Dose: 1 patch Oxycodone/Acetaminophen (Percocet 5/325 Mg Tab) 1 tab PO Q4H PRN PRN Reason: Pain, moderate (4-7) Stop: 06/28/18 22:54 Last Admin: 06/26/18 18:23 Dose: 1 tab - Labs Labs: 06/26/18 06:00 06/26/18 06:00 PT 13.0 SECONDS (9.4-12.5) H 06/25/18 18:21 INR 1.14 06/25/18 18:21 APTT 32.4 Seconds (25.1-36.5) 06/25/18 18:21 - Constitutional Appears: Well, Non-toxic, No Acute Distress - Head Exam Head Exam: ATRAUMATIC, NORMOCEPHALIC - Extremities Exam Additional comments: L lower extremity focused exam: Vasc: DP/PT faintly palpable, CFT < 3 seconds to digits 1-4, mild edema noted to L 5th digit Ortho: Pain upon palpation to left 5th digit. MMT 5/5 Neuro: Gross sensation intact, unable to assess protective sensation Derm: Dry gangrene noted to medial aspect of 5th digit. No open lesions, no purulence, no drainage noted. Erythema noted to dorsal-lateral aspect of 5th digit. - Neurological Exam Neurological Exam: Alert, Awake, Oriented x3 - Psychiatric Exam Psychiatric exam: Normal Affect - Skin Skin Exam: Normal Color Assessment and Plan - Assessment and Plan (Free Text) Assessment: 63 yo female patient, with PMHx of DM, seen and evaluated for L 5th digit gangrene. Plan: Patient seen and evaluated bedside with Dr. Jacobsen Absent leukocytosis Local wound care: betadine paint, DSD to L 5th digit L foot X-ray (06/25); Normal L foot radiographs L MRI ordered (06/26); pending Lower arterial non-invasive studies (06/25); R BOSSMAN 1.06, L .53 Vasc reccs appreciated Podiatry will continue to follow <Filipe Jacobsen - Last Filed: 06/29/18 09:09> Objective - Vital Signs/Intake and Output Vital Signs (last 24 hours): Temp Pulse Resp BP Pulse Ox 98 F 84 18 134/84 99 06/29/18 08:16 06/29/18 08:16 06/29/18 08:16 06/29/18 08:16 06/29/18 08:16 - Medications Medications: Current Medications Acetaminophen (Tylenol 325mg Tab) 650 mg PO Q6H PRN PRN Reason: Fever >100.4 F Albuterol/Ipratropium (Duoneb 3 Mg/0.5 Mg (3 Ml) Ud) 3 ml IH BID [facility] Last Admin: 06/28/18 20:01 Dose: 3 ml Aspirin (Ecotrin) 81 mg PO DAILY [facility] Last Admin: 06/28/18 09:14 Dose: 81 mg Glipizide (Glucotrol) 10 mg PO ACB [facility] Last Admin: 06/29/18 08:20 Dose: 10 mg Sodium Chloride (Sodium Chloride 0.45%) 1,000 mls @ 60 mls/hr IV .[id number] [facility] Last Admin: 06/29/18 02:00 Dose: 60 mls/hr Insulin Human Regular (Humulin R Med) 0 units SC ACHS [facility]; Protocol Last Admin: 06/29/18 08:20 Dose: Not Given Lisinopril (Zestril) 5 mg PO DAILY [facility] Last Admin: 06/28/18 09:14 Dose: 5 mg Metformin HCl (Glucophage) 1,000 mg PO BID [facility] Last Admin: 06/28/18 17:07 Dose: 1,000 mg Nicotine (Nicoderm Cq) 1 patch TD DAILY [facility] Last Admin: 06/28/18 09:14 Dose: 1 patch - Labs Labs: 06/29/18 06:30 06/29/18 06:30 PT 13.0 SECONDS (9.4-12.5) H 06/25/18 18:21 INR 1.14 06/25/18 18:21 APTT 32.4 Seconds (25.1-36.5) 06/25/18 18:21 Attending/Attestation - Attestation I have personally seen and examined this patient.: Yes I have fully participated in the care of the patient.: Yes I have reviewed all pertinent clinical information, including history, physical exam and plan: Yes
[2018-06-27] MEDS: Albuterol-Ipratrop 3 mg / 0.5 (3 ml) UD IH SCH ×2 (10:00→20:05)
[2018-06-27] MEDS: Oxycodone/Acetaminophen 5/325 mg Tab PO PRN ×2 (12:31→19:56)
[2018-06-27] MEDS: Sodium Chloride 0.45% 1,000 ML IV SCH (17:05)
--- NOTE | 2018-06-27 19:55 | PN ---
DATE: 06/26/2018 LOCATION: The patient was seen this Friday morning in room 368, bed 2. SUBJECTIVE: I saw her and admitted her late last night. H and P was done. The patient was treated with IV antibiotics and IV fluids. She already had BOSSMAN testing, which showed marked drop off of arterial pressure at the level of the left knee. During my visit, we were joined by Dr. Jimbo Yanez, interventional radiology loan consultant. On physical exam, the patient is in good spirits, feeling better with IV hydration and antibiotics with much less pain in the left foot. I explained to her that I would defer with the earlier opinion that little toe amputation was inevitable. I would attempt to start IV fluids, antibiotics, revascularization of the extremity, and then make that decision which the patient was going to adhere. Dr. Jimbo Yanez concurred. The patient will be scheduled for an MRA as well as an echocardiogram to rule out any possible embolic phenomenon and on Friday, she will undergo catheterization with possible angioplasty in the left lower extremity. Raoul Patrick MD
--- NOTE | 2018-06-27 20:33 | PN ---
DATE: 06/27/2018 SUBJECTIVE: The patient is in bed, in no acute distress, nontoxic. PHYSICAL EXAMINATION: VITAL SIGNS: Temperature is 98, blood pressure is 175/90, respiratory rate of 19. HEENT: Unremarkable. NECK: Supple. LUNGS: Have decreased breath sounds. HEART: Normal S1, S2. ABDOMEN: Soft, nontender. LABORATORY DATA: Reveals a white count of 10,000, hemoglobin of 15, platelets of 325. Coagulation is noted. Chemistries reveal BUN of 18, creatinine of 0.6. Microbiology reveals the blood cultures are no growth. ASSESSMENT AND PLAN: This is a 63-year-old female with diabetes mellitus with a left fifth toe dry gangrene, severe peripheral arterial disease. Was on vancomycin, currently off of antibiotics. The patient is waiting for an MRA. We will follow with you. Tremaine Stephens MD
--- NOTE | 2018-06-28 01:31 | PN ---
DATE: 06/27/2018 SUBJECTIVE: Patient was seen this Friday morning in room 368, bed 2. Resting in bed comfortably, in no acute distress. Left fifth toe pain has markedly decreased with elevation, antibiotics, and IV fluids. She is doing well, although getting a bit bored with hospital stay. The respiratory condition has improved. She no longer wheezing, but feels congested, days when she has had cigarettes. Transcutaneous nicotine patch has been ordered. She is getting her DuoNeb, Aerosol treatments. We will increase her diabetes medicine because sugar was up in the 170 range and continued. However, I explained to her at length why she is getting subcu insulin coverage and I do not expect her to be on insulin long-term after this hospital stay. This is simply one of those things that we do in the hospital to avoid hypoglycemic reaction. She understands. Raoul Patrick MD
[2018-06-28] MEDS: Oxycodone/Acetaminophen 5/325 mg Tab PO PRN ×4 (02:12→21:01)
[2018-06-28] MEDS: Insulin Reg-MEDIUM-Coverage SC SCH ×4 (07:41→22:31)
[2018-06-28] MEDS: Albuterol-Ipratrop 3 mg / 0.5 (3 ml) UD IH SCH ×2 (09:40→20:01)
--- NOTE | 2018-06-28 11:47 | CP.PCM.PN ---
<Maryann Bloom - Last Filed: 06/28/18 18:20> Subjective - Date & Time of Evaluation Date of Evaluation: 06/28/18 Time of Evaluation: 11:45 - Subjective Subjective: Podiatry progress Note for 63 yo female patient, with PMHx of DM, seen and evaluated for L 5th digit gangrene. Patient is AAO x3 and in NAD. Patient states that Dr. Pretty sent her into the ED for further evaluation. Her left 5th digit has become more black and painful over the past two weeks; she states that she would like to do as much as she can to help save her toe at this point. Still denies surgical intervention. Patient denies acute overnight events She denies any other pedal complaints at this time. Denies N/V/F/SOB. Objective - Vital Signs/Intake and Output Vital Signs (last 24 hours): Temp Pulse Resp BP Pulse Ox 98.1 F 78 20 148/83 96 06/28/18 06:00 06/28/18 06:00 06/28/18 06:00 06/28/18 06:00 06/28/18 06:00 Intake and Output: 06/28/18 06/28/18 06:59 18:59 Intake Total 2160 Balance 2160 - Medications Medications: Current Medications Acetaminophen (Tylenol 325mg Tab) 650 mg PO Q6H PRN PRN Reason: Fever >100.4 F Albuterol/Ipratropium (Duoneb 3 Mg/0.5 Mg (3 Ml) Ud) 3 ml IH BID [facility] Last Admin: 06/28/18 09:40 Dose: 3 ml Aspirin (Ecotrin) 81 mg PO DAILY [facility] Last Admin: 06/28/18 09:14 Dose: 81 mg Glipizide (Glucotrol) 10 mg PO ACB [facility] Last Admin: 06/28/18 09:14 Dose: 10 mg Sodium Chloride (Sodium Chloride 0.45%) 1,000 mls @ 60 mls/hr IV .[id number] [facility] Last Admin: 06/27/18 17:05 Dose: 60 mls/hr Insulin Human Regular (Humulin R Med) 0 units SC ACHS [facility]; Protocol Last Admin: 06/28/18 07:41 Dose: Not Given Lisinopril (Zestril) 5 mg PO DAILY [facility] Last Admin: 06/28/18 09:14 Dose: 5 mg Metformin HCl (Glucophage) 1,000 mg PO BID [facility] Last Admin: 06/28/18 09:14 Dose: 1,000 mg Nicotine (Nicoderm Cq) 1 patch TD DAILY [facility] Last Admin: 06/28/18 09:14 Dose: 1 patch Oxycodone/Acetaminophen (Percocet 5/325 Mg Tab) 1 tab PO Q4H PRN PRN Reason: Pain, moderate (4-7) Stop: 06/28/18 22:54 Last Admin: 06/28/18 09:19 Dose: 1 tab - Labs Labs: 06/26/18 06:00 06/26/18 06:00 PT 13.0 SECONDS (9.4-12.5) H 06/25/18 18:21 INR 1.14 06/25/18 18:21 APTT 32.4 Seconds (25.1-36.5) 06/25/18 18:21 - Constitutional Appears: Well, Non-toxic, No Acute Distress - Head Exam Head Exam: ATRAUMATIC, NORMOCEPHALIC - Extremities Exam Additional comments: L lower extremity focused exam: Vasc: DP/PT faintly palpable, CFT < 3 seconds to digits 1-4, mild edema noted to L 5th digit Ortho: Pain upon palpation to left 5th digit. MMT 5/5 Neuro: Gross sensation intact, unable to assess protective sensation Derm: Dry gangrene noted to medial aspect of 5th digit. No open lesions, no purulence, no drainage noted. Erythema noted to dorsal-lateral aspect of 5th digit. - Neurological Exam Neurological Exam: Alert, Normal Gait - Psychiatric Exam Psychiatric exam: Normal Affect - Skin Skin Exam: Normal Color Assessment and Plan - Assessment and Plan (Free Text) Assessment: 63 yo female patient, with PMHx of DM, seen and evaluated for L 5th digit gangrene. Plan: Patient seen and evaluated bedside with Dr. Jacobsen Absent leukocytosis Local wound care: betadine paint, DSD to L 5th digit L foot X-ray (06/25); Normal L foot radiographs L MRI ordered (06/26); pending Lower arterial non-invasive studies (06/25); R BOSSMAN 1.06, L .53 Vasc reccs appreciated Podiatry will continue to follow <Filipe Jacobsen - Last Filed: 06/29/18 09:05> Objective - Vital Signs/Intake and Output Vital Signs (last 24 hours): Temp Pulse Resp BP Pulse Ox 98 F 84 18 134/84 99 06/29/18 08:16 06/29/18 08:16 06/29/18 08:16 06/29/18 08:16 06/29/18 08:16 - Medications Medications: Current Medications Acetaminophen (Tylenol 325mg Tab) 650 mg PO Q6H PRN PRN Reason: Fever >100.4 F Albuterol/Ipratropium (Duoneb 3 Mg/0.5 Mg (3 Ml) Ud) 3 ml IH BID [facility] Last Admin: 06/28/18 20:01 Dose: 3 ml Aspirin (Ecotrin) 81 mg PO DAILY [facility] Last Admin: 06/28/18 09:14 Dose: 81 mg Glipizide (Glucotrol) 10 mg PO ACB [facility] Last Admin: 06/29/18 08:20 Dose: 10 mg Sodium Chloride (Sodium Chloride 0.45%) 1,000 mls @ 60 mls/hr IV .[id number] [facility] Last Admin: 06/29/18 02:00 Dose: 60 mls/hr Insulin Human Regular (Humulin R Med) 0 units SC [facility]; Protocol Last Admin: 06/29/18 08:20 Dose: Not Given Lisinopril (Zestril) 5 mg PO DAILY [facility] Last Admin: 06/28/18 09:14 Dose: 5 mg Metformin HCl (Glucophage) 1,000 mg PO BID [facility] Last Admin: 06/28/18 17:07 Dose: 1,000 mg Nicotine (Nicoderm Cq) 1 patch TD DAILY [facility] Last Admin: 06/28/18 09:14 Dose: 1 patch - Labs Labs: 06/29/18 06:30 06/29/18 06:30 PT 13.0 SECONDS (9.4-12.5) H 06/25/18 18:21 INR 1.14 06/25/18 18:21 APTT 32.4 Seconds (25.1-36.5) 06/25/18 18:21 Attending/Attestation - Attestation I have personally seen and examined this patient.: Yes I have fully participated in the care of the patient.: Yes I have reviewed all pertinent clinical information, including history, physical exam and plan: Yes
[2018-06-28] MEDS ORDERED: Gadodiamide 287 MG/ML VIAL (20ML) IV ONE ×2 (12:38→14:38)
--- NOTE | 2018-06-28 18:38 | PN ---
DATE: 06/28/2018 SUBJECTIVE: The patient is in bed, in no acute distress, nontoxic. No fevers, no chills, and no nausea. PHYSICAL EXAMINATION: VITAL SIGNS: Temperature is 98, blood pressure is 140/80, respiratory rate 20. HEENT: Unremarkable. NECK: Supple. LUNGS: Decreased breath sounds. HEART: Normal S1, S2. ABDOMEN: Soft. LABORATORY EXAMINATION: Reveals the blood cultures are no growth. Hemoglobin of 15, white count of 10, and platelets of 325. BUN of 18, creatinine of 0.6. Blood cultures are no growth. MRI is pending. ASSESSMENT AND PLAN: A 63-year-old female with diabetes, left fifth toe dry gangrene, severe peripheral arterial disease, and patient is for MRI and currently off antibiotics. Dr. Bloom's note is reviewed. Left fifth digit gangrene. MRI pending. Dr. Raoul Patrick's note from yesterday is reviewed. We will follow closely with you. Tremaine Stephens MD
[2018-06-29] MEDS: Sodium Chloride 0.45% 1,000 ML IV SCH (02:00)
--- NOTE | 2018-06-29 04:01 | PN ---
DATE: 06/28/2018 SUBJECTIVE: The patient was seen this Friday afternoon in room 368, bed 2. Out of bed, ambulating comfortably, quite pleased that her toe no more hurts. The erythema has gone down dramatically. It seems very likely that she will be able to avoid amputation of the toe. She is scheduled for angiogram with Dr. Jimbo Yanez and possible angioplasty. MRA ordered on Friday morning was never done but it may be done today or I will leave it up to Dr. Yanez to proceed to angiogram and angioplasty if possible. Otherwise, the patient is doing well in good spirits. Sugars are rather fairly well controlled. Raoul Patrick MD
[2018-06-29] MEDS ORDERED: Oxycodone/Acetaminophen 5/325 mg Tab PO STA (06:45)
[2018-06-29 07:15] LABS: BASO # 0.05 K/mm3 (0.0-2.0); BASO % 0.7 % (0.0-3.0); EOS # 0.1 (0.0-0.7); GRAN # 4.18 (1.4-6.5); GRAN % 58.2 % (50.0-68.0); HEMOGLOBIN 14.7 g/dL (12.0-16.0); LYMPH # 2.3 (1.2-3.4); LYMPH % 32.6 % (22.0-35.0); MEAN CELL VOLUME 88.2 fl (80.0-105.0); MEAN CORPUSCULAR HEMOGLOBIN 29.9 pg (25.0-35.0); MEAN CORPUSCULAR HGB CONC 33.9 g/dl (31.0-37.0); MEAN PLATELET VOLUME 9.4 fl (7.0-11.0); MONO # 0.5 (0.1-0.6); MONO % 7.5 % (1.0-6.0); RBC 4.91 10^6/uL (3.5-6.1); RED CELL DISTRIBUTION WIDTH 13.3 % (11.5-14.5); WHITE BLOOD COUNT 7.2 10^3/ul (4.5-11.0)
[2018-06-29 07:24] LABS: BLOOD UREA NITROGEN 14 mg/dL (7-21); CALCIUM 9.5 mg/dL (8.4-10.5); GFR NON-AFRICAN AMERICAN > 60
[2018-06-29] MEDS: Albuterol-Ipratrop 3 mg / 0.5 (3 ml) UD IH SCH ×2 (07:40→20:32)
[2018-06-29] MEDS: Insulin Reg-MEDIUM-Coverage SC SCH ×4 (08:20→22:01)
--- NOTE | 2018-06-29 12:35 | CP.PCM.PN ---
<Lesly Cho - Last Filed: 06/29/18 12:32> Subjective - Date & Time of Evaluation Date of Evaluation: 06/29/18 Time of Evaluation: 12:32 - Subjective Subjective: Podiatry progress Note for 63 yo female patient seen and evaluated for L 5th digit gangrene. Patient is AAO x3 and in NAD. Patient denies any plans for amputation at this time and would like to try to treat the 5th digit conservatively. She denies any other pedal complaints. Denies N/V/F/SOB. Objective - Vital Signs/Intake and Output Vital Signs (last 24 hours): Temp Pulse Resp BP Pulse Ox 98 F 84 18 134/84 99 06/29/18 08:16 06/29/18 09:56 06/29/18 08:16 06/29/18 09:56 06/29/18 08:16 - Medications Medications: Current Medications Acetaminophen (Tylenol 325mg Tab) 650 mg PO Q6H PRN PRN Reason: Fever >100.4 F Albuterol/Ipratropium (Duoneb 3 Mg/0.5 Mg (3 Ml) Ud) 3 ml IH BID [facility] Last Admin: 06/28/18 20:01 Dose: 3 ml Aspirin (Ecotrin) 81 mg PO DAILY [facility] Last Admin: 06/28/18 09:14 Dose: 81 mg Glipizide (Glucotrol) 10 mg PO ACB [facility] Last Admin: 06/29/18 08:20 Dose: 10 mg Sodium Chloride (Sodium Chloride 0.45%) 1,000 mls @ 60 mls/hr IV .[id number] [facility] Last Admin: 06/29/18 02:00 Dose: 60 mls/hr Insulin Human Regular (Humulin R Med) 0 units SC ACHS [facility]; Protocol Last Admin: 06/29/18 08:20 Dose: Not Given Lisinopril (Zestril) 5 mg PO DAILY [facility] Last Admin: 06/29/18 09:56 Dose: 5 mg Metformin HCl (Glucophage) 1,000 mg PO BID [facility] Last Admin: 06/29/18 09:56 Dose: 1,000 mg Nicotine (Nicoderm Cq) 1 patch TD DAILY [facility] Last Admin: 06/29/18 09:56 Dose: 1 patch Oxycodone/Acetaminophen (Percocet 5/325 Mg Tab) 1 tab PO Q4H PRN PRN Reason: Pain, moderate (4-7) Stop: 07/02/18 12:20 - Labs Labs: 06/29/18 06:30 06/29/18 06:30 PT 13.0 SECONDS (9.4-12.5) H 06/25/18 18:21 INR 1.14 06/25/18 18:21 APTT 32.4 Seconds (25.1-36.5) 06/25/18 18:21 - Constitutional Appears: Well, Non-toxic, No Acute Distress - Extremities Exam Additional comments: L lower extremity focused exam: Vasc: DP/PT faintly palpable, CFT < 3 seconds to digits 1-4, mild edema noted to L 5th digit, TG warm to cool Ortho: Pain upon palpation to left 5th digit. MMT 5/5, no gross deformities present Neuro: Gross sensation intact, unable to assess protective sensation Derm: Dry gangrene noted to medial aspect of 5th digit. No open lesions, no purulence, no drainage noted. Erythema noted to dorsal-lateral aspect of 5th digit. - Neurological Exam Neurological Exam: Alert, Awake, Oriented x3 - Psychiatric Exam Psychiatric exam: Normal Affect, Normal Mood Assessment and Plan - Assessment and Plan (Free Text) Assessment: 63 yo female patient seen and evaluated for L 5th digit gangrene. Plan: Patient seen and evaluated bedside with Dr. Delmar GOTTLIEB, WBC 7.2 Local wound care: betadine paint, DSD to L 5th digit L foot X-ray (06/25); Normal L foot radiographs L MRI ordered (06/26); pending Blood cx; no growth Lower arterial non-invasive studies (06/25); R BOSSMAN 1.06, L .53 -Vasc reccs appreciated Podiatry will continue to follow <Filipe Jacobsen - Last Filed: 06/30/18 12:08> Objective - Vital Signs/Intake and Output Vital Signs (last 24 hours): Temp Pulse Resp BP Pulse Ox 97.8 F 85 19 156/83 H 94 L 06/30/18 07:39 06/30/18 07:39 06/30/18 07:39 06/30/18 07:39 06/30/18 07:39 Intake and Output: 06/30/18 06/30/18 06:59 18:59 Intake Total 1560 Output Total 1100 Balance 460 - Medications Medications: Current Medications Acetaminophen (Tylenol 325mg Tab) 650 mg PO Q6H PRN PRN Reason: Fever >100.4 F Albuterol/Ipratropium (Duoneb 3 Mg/0.5 Mg (3 Ml) Ud) 3 ml IH BID [facility] Last Admin: 06/29/18 20:32 Dose: Not Given Aspirin (Ecotrin) 81 mg PO DAILY [facility] Last Admin: 06/30/18 09:10 Dose: 81 mg Glipizide (Glucotrol) 10 mg PO ACB [facility] Last Admin: 06/30/18 09:10 Dose: 10 mg Sodium Chloride (Sodium Chloride 0.45%) 1,000 mls @ 60 mls/hr IV .[id number] [facility] Last Admin: 06/29/18 02:00 Dose: 60 mls/hr Insulin Human Regular (Humulin R Med) 0 units SC ACHS [facility]; Protocol Last Admin: 06/30/18 07:51 Dose: Not Given Lisinopril (Zestril) 5 mg PO DAILY [facility] Last Admin: 06/30/18 09:10 Dose: 5 mg Metformin HCl (Glucophage) 1,000 mg PO BID [facility] Last Admin: 06/30/18 09:15 Dose: Not Given Nicotine (Nicoderm Cq) 1 patch TD DAILY [facility] Last Admin: 06/30/18 09:10 Dose: 1 patch Oxycodone/Acetaminophen (Percocet 5/325 Mg Tab) 1 tab PO Q4H PRN PRN Reason: Pain, moderate (4-7) Stop: 07/02/18 12:20 Last Admin: 06/30/18 05:48 Dose: 1 tab - Labs Labs: 06/30/18 06:00 06/30/18 06:00 PT 13.0 SECONDS (9.4-12.5) H 06/25/18 18:21 INR 1.14 06/25/18 18:21 APTT 32.4 Seconds (25.1-36.5) 06/25/18 18:21 Attending/Attestation - Attestation I have personally seen and examined this patient.: Yes I have fully participated in the care of the patient.: Yes I have reviewed all pertinent clinical information, including history, physical exam and plan: Yes
--- NOTE | 2018-06-29 12:42 | MRI ---
Date of service: 06/28/2018 PROCEDURE: MR angiography of the lower extremities with and without contrast HISTORY: left foot ischemia. Left popliteal COMPARISON: TECHNIQUE: MR angiography of the abdominal aorta and lower extremities was performed with and without IV contrast. 20 cc of Omniscan were injected. FINDINGS: Mild atherosclerotic changes are seen in the aorta. The celiac SMA and renal arteries are patent. The iliac and common femoral arteries are patent. Both superficial femoral a arteries are patent. There is a mild stenosis at the junction of the left SFA and popliteal. There is 2 vessel runoff to each ankle. IMPRESSION: Mild stenosis at the junction of the left SFA and popliteal. The study is otherwise unremarkable
[2018-06-29] MEDS ORDERED: Lidocaine 2% PF (10 ml) Amp ONE (16:27)
[2018-06-29] MEDS ORDERED: Nitroglycerin 50mg in D5W 50 MG/250 ML BOTTLE IV ONE (16:28)
[2018-06-29] MEDS ORDERED: Iodixanol 320 MG/ML 200 ML BOTTLE IV ONE (16:29)
[2018-06-29] MEDS ORDERED: Iodixanol 320 mg/ml 150 ml Bottle IV ONE (16:29)
[2018-06-29] MEDS ORDERED: Iodixanol 320 MG/ML 100 ML BOTTLE IV ONE (16:29)
[2018-06-29] MEDS ORDERED: Midazolam 2 MG/2 ML VIAL ONE ×2 (17:20→17:27)
--- NOTE | 2018-06-29 19:07 | VASCULAR ---
PROCEDURE: 1. Abdominal aortogram and bilateral lower extremity runoff with left selective views. 2. Distal left SFA and above knee popliteal silver Hawk atherectomy, drug-eluting balloon angioplasty, and focal stent placement. 3. Long segment left anterior tibial artery angioplasty HISTORY: Severe peripheral vascular disease with gangrene left 5th toe. Diabetes. Smoker. PHYSICIAN(S): Jimbo Yanez M.D. TECHNIQUE: The relative risks and indications of the procedure were explained to the patient and consent obtained. The patient was hydrated prior to the procedure and the appropriate labs drawn. The patient was placed supine on the arteriogram table and the right groin prepped and draped in the usual sterile fashion. Conscious sedation and monitoring were provided throughout the procedure by a nurse. Via a right common femoral artery approach, a 5 [place] sheath was placed in the right groin. Through the sheath and over a guidewire, a 5 [place] flush catheter was placed in the abdominal aorta at the level of the renal arteries and a PA DSA abdominal aortogram performed. The catheter was pulled down to the aortic bifurcation and bilateral oblique DSA pelvic arteriograms performed. Overlapping bilateral lower extremity DSA arteriograms were obtained from the inguinal ligaments to the ankles. A 0.035 angled Glidewire was advanced over the bifurcation and placed in the distal left SFA. A 7 [place] 65 cm destination sheath was placed in the mid left SFA. Heparin 5000 units IV and nitroglycerin in 250 mcg aliquots were given. The disease in the distal left SFA and left popliteal artery above the knee was easily crossed with a 0.035 glidewire and 5 [place] catheter. A 0.014 support wire was placed in the left peroneal artery. [place] atherectomy of the distal left SFA in the critical lesion in the left popliteal artery above the knee was treated with an LS catheter. Approximately 6 passes were performed. Next the distal left SFA and above knee popliteal arteries were dilated with a 6 mm drug-eluting balloon. A suboptimal result was obtained in the distal left SFA. Consequently a 6 mm x 4 cm self expanding stent was placed the distal left SFA and dilated with a 6 mm balloon. An excellent angiographic result was obtained Next the trail laser catheter and 0.035 glidewire was directed into the diffusely diseased left anterior tibial artery. The catheter past rather easily through the diffuse disease. A 0.014 support wire was placed the terminal left anterior tibial artery. The left anterior tibial artery was dilated with long segment 3.0 and 3.5 mm balloons. A good angiographic result was obtained and no stent was required. Completion angiograms were performed. The sheath was removed hemostasis obtained with a Perclose device. The patient tolerated the procedure well. FINDINGS: There are single renal arteries bilaterally which are widely patent and normal in appearance. The nephrograms are symmetric in appearance. The infrarenal abdominal aorta is smoothly calcified and widely patent without radiographically significant stenosis. Aortic bifurcation is patent. The common and external iliac arteries are patent on two views. The internal iliac arteries are patent bilaterally.. Right lower extremity: The right common femoral artery is patent. The right profunda femoral artery is patent. The right superficial femoral artery is smoothly and diffusely disease without radiographically significant stenosis. The right popliteal artery is patent and continuous. There is 2 vessel runoff to the right ankle. The right peroneal artery is incompletely opacified. Left lower extremity: Left common femoral artery is patent. The left profunda femoral artery is hypertrophied. The left superficial femoral artery is diffusely diseased and patent in its proximal and mid segments. There are tandem moderate severe stenoses in the distal left SF There is a critical focal stenosis of the left popliteal artery just above the knee. The left posterior tibial and peroneal arteries are patent. There is long segment disease of the left anterior tibial artery.. IMPRESSION: 1.Successful distal left SFA and popliteal artery silver Hawk atherectomy, drug-eluting balloon angioplasty, and focal stent placement 2. Successful long segment left anterior tibial artery angioplasty
[2018-06-30] MEDS: Oxycodone/Acetaminophen 5/325 mg Tab PO PRN ×2 (00:13→05:48)
--- NOTE | 2018-06-30 03:13 | PN ---
DATE: 06/29/2018 SUBJECTIVE: The patient was seen earlier today. No fevers, no chills, no nausea. PHYSICAL EXAMINATION VITAL SIGNS: Temperature is 98, blood pressure is 120/70, respiratory rate of 18. HEENT: Unremarkable. NECK: Supple. LUNGS: Decreased breath sounds. HEART: Normal S1, S2. ABDOMEN: Soft. LABORATORY EXAMINATION: Reveals the patient's white count is 7.2, Chemistries are noted. BUN of 14, creatinine of 0.6. Microbiology reveals the blood cultures are negative and MRA results are noted. The patient's possible surgery today. ASSESSMENT AND PLAN: This is a 63-year-old female with diabetes, left toe dry gangrene, severe peripheral arterial disease and the patient to be followed with Dr. Jimbo Yanez today for intervention of vascular procedure, ____ for a successful distal left superficial femoral artery and popliteal artery ____ nephrectomy, and drug eluting balloon angioplasty and focal stent placement. We will follow with you. Tremaine Stephens MD
[2018-06-30 06:27] LABS: HEMOGLOBIN 13.7 g/dL (12.0-16.0); MEAN CELL VOLUME 88.7 fl (80.0-105.0); MEAN CORPUSCULAR HEMOGLOBIN 29.8 pg (25.0-35.0); MEAN CORPUSCULAR HGB CONC 33.6 g/dl (31.0-37.0); MEAN PLATELET VOLUME 9.4 fl (7.0-11.0); RBC 4.6 10^6/uL (3.5-6.1); RED CELL DISTRIBUTION WIDTH 13.2 % (11.5-14.5); WHITE BLOOD COUNT 9.1 10^3/ul (4.5-11.0)
[2018-06-30 07:39] VITALS: BP 156/83; PULSE 85; RESP 19; TEMP 97.8; O2SAT 94
[2018-06-30 07:39] LABS: BLOOD UREA NITROGEN 11 mg/dL (7-21); CALCIUM 9.1 mg/dL (8.4-10.5); GFR NON-AFRICAN AMERICAN > 60
[2018-06-30] MEDS: Insulin Reg-MEDIUM-Coverage SC SCH (07:51)
--- NOTE | 2018-06-30 15:02 | CP.PCM.PN ---
<MarquisLesly - Last Filed: 06/30/18 14:54> Subjective - Date & Time of Evaluation Date of Evaluation: 06/30/18 Time of Evaluation: 14:54 - Subjective Subjective: Podiatry progress Note for 63 yo female patient seen and evaluated for L 5th digit gangrene. Patient is resting comfortably and in NAD. Patient would not like surgical intervention at this time. She denies any other pedal complaints at this time. Denies N/V/F Objective - Vital Signs/Intake and Output Vital Signs (last 24 hours): Temp Pulse Resp BP Pulse Ox 97.8 F 85 19 156/83 H 94 L 06/30/18 07:39 06/30/18 07:39 06/30/18 07:39 06/30/18 07:39 06/30/18 07:39 Intake and Output: 06/30/18 06/30/18 06:59 18:59 Intake Total 1560 Output Total 1100 Balance 460 - Labs Labs: 06/30/18 06:00 06/30/18 06:00 PT 13.0 SECONDS (9.4-12.5) H 06/25/18 18:21 INR 1.14 06/25/18 18:21 APTT 32.4 Seconds (25.1-36.5) 06/25/18 18:21 - Constitutional Appears: Well, Non-toxic, No Acute Distress - Head Exam Head Exam: ATRAUMATIC, NORMOCEPHALIC - Extremities Exam Additional comments: L lower extremity focused exam: Vasc: DP/PT faintly palpable, CFT < 3 seconds to digits 1-4, mild edema noted to L 5th digit, TG warm to cool, no edema noted to left 5th digit Ortho: Pain upon palpation to left 5th digit. MMT 5/5, no gross deformities present Neuro: Gross sensation intact, unable to assess protective sensation Derm: Dry gangrene noted to medial aspect of 5th digit. No open lesions, no purulence, no drainage noted, malodor. Erythema noted to dorsal-lateral aspect of 5th digit. - Neurological Exam Neurological Exam: Alert, Awake, Oriented x3 - Psychiatric Exam Psychiatric exam: Normal Affect, Normal Mood Assessment and Plan - Assessment and Plan (Free Text) Assessment: 63 yo female patient seen and evaluated for L 5th digit gangrene. Plan: Patient seen and evaluated bedside with Dr. Jacobsen Local wound care: betadine paint, DSD to L 5th digit L foot X-ray (06/25); Normal L foot radiographs L MRI ordered (06/26); pending Blood cx; no growth Lower arterial non-invasive studies (06/25); R BOSSMAN 1.06, L .53 Patient to F/U in wound care center with Dr. Pretty upon D/C <Filipe Jacobsen - Last Filed: 07/01/18 10:58> Objective - Vital Signs/Intake and Output Vital Signs (last 24 hours): Temp Pulse Resp BP Pulse Ox 97.8 F 85 19 156/83 H 94 L 06/30/18 07:39 06/30/18 07:39 06/30/18 07:39 06/30/18 07:39 06/30/18 07:39 - Labs Labs: 06/30/18 06:00 06/30/18 06:00 PT 13.0 SECONDS (9.4-12.5) H 06/25/18 18:21 INR 1.14 06/25/18 18:21 APTT 32.4 Seconds (25.1-36.5) 06/25/18 18:21 Attending/Attestation - Attestation I have personally seen and examined this patient.: Yes I have fully participated in the care of the patient.: Yes I have reviewed all pertinent clinical information, including history, physical exam and plan: Yes
--- NOTE | 2018-07-01 00:05 | PN ---
DATE: 06/30/2018 SUBJECTIVE: The patient was seen earlier this morning in room 368, bed 2. No fevers, no chills. PHYSICAL EXAMINATION: VITAL SIGNS: Temperature is 97, blood pressure is 150/80, respiratory rate of 16. HEENT: Unremarkable. NECK: Supple. LUNGS: Decreased breath sounds. HEART: Normal S1, S2. ABDOMEN: Soft. LABORATORY EXAMINATION: Reveals white count of 9.1. Chemistries are noted. Microbiology is reviewed. Blood cultures are negative. ASSESSMENT AND PLAN: A 63-year-old female with diabetes and left fifth toe dry gangrene, severe peripheral vascular disease, and was seen earlier this morning in room 368, bed 2 for an intervention. The patient had an intervention of vascular procedure, successful distal left superficial femoral artery and popliteal artery and drug eluting balloon angioplasty, and Dr. Lesly Talley's progress note is reviewed. The patient tolerated the procedure well. Tremaine Stephens MD
--- NOTE | 2018-07-02 00:18 | DS ---
HISTORY OF PRESENT ILLNESS: This is a 63-year-old woman with diabetes, a lifetime smoker who presented to the emergency room after failing outpatient treatment with a cellulitic fifth toe on her left foot, which then became dark and gangrenous. On presenting exam, there was no dorsalis pedis or tibial pulse. The toe was red, erythematous with swelling in the foot and had a small area of blackened eschar on the medial aspect of the left fifth toe. The other toes seemed to be intact. Patient was admitted and started on IV antibiotics, hydration, seen by vascular interventional radiologist Dr. Jimbo Yanez. ABIs were done and were abnormal at the level of the left knee. MRA was done and confirmed. After the weekend, the patient underwent a catheterization and angioplasty. A stent was placed by Dr. Jimbo Yanez. The following day today, she is sitting at the edge of the bed with her girlfriend of many years at the bedside. Patient was awake, alert, and comfortable. The toe looked markedly improved. The foot was a bit red and swollen as we expected. There were good dorsalis pedis and posterior tibial pulses easily palpable. Importance of smoking cessation was again reviewed with the patient. Her diabetes medicine will continue, and she will continue following her sugar. SHANI inhibitor was added for her blood pressure that was a little bit elevated and also for renal protection. Prescription was called to the drugstore for lisinopril 5 mg daily. She was given a paper prescription for Percocet, approximately 12 fills for pain. She will follow up with us in the office within a week. FINAL DISCHARGE DIAGNOSES: 1. Peripheral artery disease with some tissue necrosis of the left fifth toe. 2. Diabetes. 3. Active tobacco use. 4. New diagnose, hypertension. Raoul Patrick MD
== END 2018-06-30 14:22 | disposition home or self-care (01) | DRG 272 ==
LOC: ED 16:17 → ERH 18:45 → 3RNO 22:34 → 2RSO 06-29 20:15 → 3RNO 06-30 01:26
PROVIDERS: ADMIT Internal Medicine; ATTEND Internal Medicine
PROC: 3E0F7GC Introduction of Other Therapeutic Substance into Respiratory Tract, Via Natural or Artificial Opening (ICD-10-PCS; 2018-06-26)
PROC: 04CL3ZZ Extirpation of Matter from Left Femoral Artery, Percutaneous Approach (ICD-10-PCS; principal; 2018-06-29)
PROC: 047L34Z Dilation of Left Femoral Artery with Drug-eluting Intraluminal Device, Percutaneous Approach (ICD-10-PCS; 2018-06-29)
PROC: 047Q3ZZ Dilation of Left Anterior Tibial Artery, Percutaneous Approach (ICD-10-PCS; 2018-06-29)
PROC: B41DYZZ Fluoroscopy of Aorta and Bilateral Lower Extremity Arteries using Other Contrast (ICD-10-PCS; 2018-06-29)
DX: E10.52 Type 1 diabetes mellitus with diabetic peripheral angiopathy with gangrene (principal); F17.210 Nicotine dependence, cigarettes, uncomplicated; L03.032 Cellulitis of left toe; I10 Essential (primary) hypertension; J44.9 Chronic obstructive pulmonary disease, unspecified; Z85.41 Personal history of malignant neoplasm of cervix uteri

== ENCOUNTER 2018-07-29 06:15 | Day surgery (SDC) | payer OTHER ==
[2018-07-29] MEDS ORDERED: Propofol 10 mg/ml Inj (20 ML) ONE (07:33)
[2018-07-29] MEDS ORDERED: Sevoflurane - Inhalation Anesthetic Liq (250 ml) ONE (07:34)
[2018-07-29] MEDS ORDERED: Etomidate 20 mg/10ml Inj IV ONE (07:34)
[2018-07-29] MEDS ORDERED: Lidocaine 2% Inj (20ml) ONE (07:38)
[2018-07-29] MEDS ORDERED: Metoprolol 1 mg/ml Inj ONE (07:42)
[2018-07-29] MEDS ORDERED: Bupivacaine 0.5% 50 ML IJ ONE (07:56)
[2018-07-29] MEDS ORDERED: Lidocaine 2% Inj (20ml) IJ ONE (08:10)
[2018-07-29] MEDS ORDERED: CeFAZolin 1 gm in NS 100ml IVPB ONE (08:10)
[2018-07-29] MEDS ORDERED: HYDROmorphone 0.5 mg/0.5 ml ISec IVP PRN (08:46)
--- NOTE | 2018-07-29 08:46 | PCM.SURG1 ---
Surgeon's Initial Post Op Note - Surgeon's Notes Surgeon: Dr. Pretty DPM Gold Cutter: Dr. Long PGY1 Type of Anesthesia: General LMA, Local Anesthesia Administered By: Shahab Pre-Operative Diagnosis: Left foot fifth digit osteomyelitis and cellulitis Operative Findings: see dictation. I: 4 cc 2% lidocaine plain. M: 2-0 vicryl, 3-0 nylon, xeroform, DSD Post-Operative Diagnosis: same Operation Performed: left foot fifth digit partial amputation to level of PIPJ, removal of cartilage at PIPJ Specimen/Specimens Removed: left foot fifth digit bone and soft tissue Estimated Blood Loss: EBL {In ML}: 1 Blood Products Given: N/A Drains Used: No Drains Post-Op Condition: Good Date of Surgery/Procedure: 07/29/18 Time of Surgery/Procedure: 08:46
[2018-07-29] MEDS ORDERED: Oxycodone/Acetaminophen 5/325 mg Tab PO PRN ×2 (08:47)
[2018-07-29] MEDS ORDERED: Lactated Ringer's 1,000 ML IV SCH (09:00)
[2018-07-29 09:57] VITALS: RESP 20; TEMP 97.8; O2SAT 99
[2018-07-29] MEDS ORDERED: Oxycodone/Acetaminophen 5/325 mg Tab ONE (10:02)
[2018-07-29 11:19] VITALS: BP 140/70; PULSE 70
--- NOTE | 2018-07-29 14:18 | RAD ---
Date of service: 07/29/2018 PROCEDURE: Left Foot Radiographs. HISTORY: s/p left foot fifth digit partial amputation COMPARISON: Preoperative study 06/25/2018 FINDINGS: BONES: Postsurgical changes related to resection distal phalanx left 5th digit. JOINTS: Stable degenerative changes remainder of the foot SOFT TISSUES: Soft tissue swelling at the surgical site. OTHER FINDINGS: None. IMPRESSION: Satisfactory postoperative status.
--- NOTE | 2018-08-03 06:01 | OP ---
PROCEDURE DATE: 07/29/2018 PATIENT'S AGE: 63. PATIENT'S SEX: Female. PREOPERATIVE DIAGNOSES: Left foot fifth digit osteomyelitis and cellulitis. POSTOPERATIVE DIAGNOSES: Left foot fifth digit osteomyelitis and cellulitis. PROCEDURES: Left foot fifth digit partial amputation to the level PIPJ, removal of cartilage at PIPJ. SURGEON: Madison Pretty DPM. ASSISTANTS: Dr. Long, PGY 1. ANESTHESIA ADMINISTERED BY: Dr. Gudino. [employer] INS[employer]CTION: General LMA with local. INDICATION: The patient is a 63-year-old female with the above diagnoses. The patient has exhausted all conservative treatments at this time and now requests surgical intervention. The patient signed a consent after careful explanation of risks, benefits, complications, and alternatives for surgical procedure. No guarantees were given nor implied. PREPARATION: The patient was brought in to the operating room and placed on the operating room table in a supine position. A time-out was performed for identification of the correct patient and procedure. After induction of general LMA sedation, 4 cc of 2% lidocaine plain was injected in a V-block fashion to the left fifth digit proximally. The left foot was then prepped and draped in a normal sterile manner and the procedure began. DESCRIPTION OF PROCEDURE: Attention was then directed to the left fifth digit where an incision was made circumferentially at the level of the proximal interphalangeal joint. Using a #15 blade, the incision was then extended down through the subcutaneous layers down to the level of bone. Using a bone clamp to stabilize, the distal aspect of the toe, the distal and middle phalanx were disarticulated from the joint at the level of the proximal interphalangeal joint. This specimen was then passed from the operative field and sent to pathology. Using a fresh #15 blade, all necrotic and nonviable tissue were then excisionally debrided from the surgical site. Cartilage was then resected from the proximal phalanx head using a bone cutter. The surgical site was then irrigated with copious amounts of normal saline mixed with antibiotic. Subcutaneous layers were reapproximated with 2-0 Vicryl and skin layers were reapproximated with 3-0 nylon in a simple suture technique. The left foot was then dressed with Xeroform, and Leonardo. POSTOPERATIVE CONDITION: The patient tolerated the anesthesia and procedure well and was escorted to the recovery room with vital signs stable and neurovascular status intact to the left foot. The patient will follow up with Dr. Pretty upon discharge. Fidel Long DPM Madison Pretty DPM
== END 2018-07-29 11:25 | disposition home or self-care (01) ==
LOC: SDS 06:15
PROVIDERS: ATTEND Podiatrist
DX: E11.69 Type 2 diabetes mellitus with other specified complication (principal); M86.8X7 Other osteomyelitis, ankle and foot; E11.51 Type 2 diabetes mellitus with diabetic peripheral angiopathy without gangrene; L03.116 Cellulitis of left lower limb; Z79.84 Long term (current) use of oral hypoglycemic drugs; Z87.891 Personal history of nicotine dependence